=== PATIENT | female | born 1980 | race Hispanic/Latino ===

== ENCOUNTER → 2024-06-30 09:56 | Outpatient (REF) | payer BC, SELFPAY | LOC: RAD 09:56 | PROVIDERS: ATTENDING PHYSICIAN Physician Assistant Medical; FAMILY PHYSICIAN Family Medicine | DX: M54.50 Low back pain, unspecified (principal); M54.16 Radiculopathy, lumbar region; M54.12 Radiculopathy, cervical region | CPT/HCPCS: 72050; 72110 ==

== ENCOUNTER 2024-09-26 15:32 | Emergency (ER) | payer BC, SELFPAY ==
[2024-09-26 15:40] VITALS: BP 129/73
--- NOTE | 2024-09-26 17:36 | ED.GENMED ---
History of Present Illness
General
Chief Complaint: Eye Problems
Source: patient
Exam Limitations: none
Time Seen by Provider: 09/26/24 17:21
History of Present Illness
History of Present Illness:
44yoF with no significant past medical history presenting for evaluation of right eye pain. Patient had eyelash extensions glued on yesterday. She started to have some eyelid irritation so the lashes were removed. She now is having a foreign body
sensation to the right eye with associated pain and photophobia. She believes she has glue stuck in her eye. No visual disturbance. She does not wear glasses or contact lenses.
Past History
Past History
ED Past Medical History: None
ED Past Surgical History: None
Social History
Tobacco: Non-smoker
Alcohol: None
Drug: None
Personal:
Living: with family
Employment: Employed
Family History
Family History: Other (Noncontributory)
Phy Exam
Physical Exam
Physical Exam:
Sitting in a dark room with eyes closed
General Physical Exam
General Presentation: well appearing
General age: appears stated age
General Skin: warm and dry
General Habitus: normal
General Mental: alert
ENT Exam
ENT Exam: TM's normal
Eye Exam
Eye Exam: other (R conjunctival injection noted with tearing. PERRL. EOMs intact. Pain relieved after tetracaine administration. Abrasion noted at 6:00 position on iris. Negative Dana sign.)
Right 20/: 30
Left 20/: 40
Neurological Exam
Neurological Exam: alert
[place] Coma Scale
Eye Opening: Spontaneous
Verbal Response: Oriented
Motor Response: Obeys Commands
GCS Total Score: 15
Skin Exam
Skin Exam: normal color and warm/dry
Psychiatric Exam
Psychiatric Exam: normal mood/affect
Course
Orders/Labs/Results
Orders:
Orders
09/26/24 17:36
Erythromycin (Ilotycin) [Erythromycin 0.5% Ophthalmic Ointment] See Dose Instructions OPHTH NOW STA
09/26/24 17:50
Tetracaine HCl [Tetracaine 0.5% Ophthalmic Solution] 1 drop .ROUTE .STK-MED ONE
Vital Signs
Initial and Last Documented VS:
Initial Vital Signs
Temp Pulse Resp BP Pulse Ox
98 F 71 16 129/73 95
09/26/24 15:40 09/26/24 15:40 09/26/24 15:40 09/26/24 15:40 09/26/24 15:40
Last Documented Vital Signs
Temp Pulse Resp BP Pulse Ox
98 F 70 18 135/84 95
09/26/24 15:40 09/26/24 18:14 09/26/24 18:14 09/26/24 18:14 09/26/24 15:40
MDM/Problems Addressed
Differential Diagnosis Includes:
44yoF here with R eye foreign body sensation/pain after having eyelash extensions placed yesterday. She is sitting in a dark room with eyes closed. Tetracaine administered with immediate relief of pain. Corneal abrasion seen on fluorescein stain. No
FB visualized. No evidence of globe rupture. Visual acuity 20/30 in affected eye.
Prescription given for erythromycin ointment. Supportive care discussed. Advised f/u with ophthalmology. She was discharged in stable condition.
*Critical Care Note
Total Time (30-74mins, 75-104mins- exclusive of procedures): Not Applicable
ED Attending Note
-
Portions of this chart may have been created with voice recognition software.� Occasional wrong word or��sound alike� substitutions may have occurred due to the inherent limitations of voice recognition software.
Discharge Plan
Departure
Patient Disposition: Home (Routine Discharge)
Date of Disposition: 09/26/24
Time of Disposition: 17:38
Patient with high blood pressure during this ER visit?: No
Discharge Problem:
Abrasion of right cornea
Instructions: Corneal Abrasion (DC)
Prescriptions:
New
erythromycin 5 mg/gram (0.5 %) ointment
0.5 inch RIGHT EYE QID 7 Days Qty: 3.5 0RF
No Action
PNV cmb#95-ferrous fumarate-FA [] 1 EACH tablet
1 ea PO DAILY
acetaminophen 325 MG tablet
650 mg PO Q4HPRN PRN (Reason: mild pain) 0RF
sennosides-docusate sodium 1 TABLET tablet
1 tab PO DAILYPRN PRN (Reason: constipation) Qty: 30 0RF
oxycodone-acetaminophen 5 MG/325 MG tablet
1 tab PO Q4HPRN PRN (Reason: moderate pain) Qty: 15 0RF
enoxaparin 40 MG/0.4 ML syringe
40 mg SC QPM 0RF
ibuprofen 600 mg tablet
600 mg PO Q6H PRN (Reason: fever or pain) Qty: 20 0RF
cephalexin 500 mg capsule
500 mg PO Q8H Qty: 20 0RF
oxycodone-acetaminophen [Percocet] 5-325 mg tablet
1 tab PO Q6HPRN PRN (Reason: pain) Qty: 10 0RF
Referrals:
Diego Elena MD [Family Provider] -
Nikita Busby MD [Active] -
Activity Restrictions/Additional Instructions:
Apply antibiotic eye ointment as prescribed. Use cool compresses and Tylenol/ibuprofen as needed for pain. Symptoms should improve in the day or two.
Please follow-up with an eye doctor. Return to the ER with any worsening symptoms.
Interventions
Interventions:
*Risk Screen - Suicide Last Done: 09/26/24 15:41
*General Assessment Last Done: 09/26/24 17:46
*Neglect/Abuse Screening Last Done: 09/26/24 15:41
*Nursing Disposition Last Done: 09/26/24 18:15
Discharge Date and Time
Discharge Date/Time: 09/26/24 18:16
Print Language: [place]
[2024-09-26] MEDS: ERYTHROMYCIN 0.5% OPHTHALMIC OINTMENT 1 APPLIC OPHTH (18:02)
[2024-09-26 18:14] VITALS: BP 135/84
== END 2024-09-26 18:16 | disposition home or self-care (01) ==
LOC: EMR 15:32
PROVIDERS: EMERGENCY PHYSICIAN Emergency Medicine; FAMILY PHYSICIAN Thoracic Surgery (Cardiothoracic Vascular Surgery)
DX: S05.01XA Injury of conjunctiva and corneal abrasion without foreign body, right eye, initial encounter (principal); X58.XXXA Exposure to other specified factors, initial encounter
CPT/HCPCS: 99283